=== PATIENT | male | born 1975 | race African-American/Black ===

== ENCOUNTER 2017-01-20 21:06 | Emergency (ER) | payer SELFPAY ==
[~2017-01-20] VITALS: Ht 190.5 cm; Wt 102.5 kg
[~2017-01-20 21:06] MED LIST: FLAGYL500 MG PO; LEVAQUIN500 MG PO; NAPROSYN-EC500 MG PO; NOHOMEMEDS; NORCO 5/3251 TABLET PO; PANTOPRAZOLE SO40 MG PO; TYLENOL EXTRA500 MG PO; ULTRAM50 MG PO; ZOFRAN ODT4 MG PO
[2017-01-20 21:43] LABS: HEMATOCRIT 48.6 % (38.0-50.0); MCH 30.8 PG (29.0-34.0); RBC DIS.WIDTH-CV 13.1 % (11.8-14.6); RBC DIS.WIDTH-SD 42.2 % (39-53); RED BLOOD COUNT 5.52 M/uL (4.00-5.50); WHITE BLOOD COUNT 15.5 K/uL (4.1-10.2)
[2017-01-20 21:58] LABS: CHLORIDE 105 mEq/L (99-109); POTASSIUM 4.6 mEq/L (3.7-5.4); SODIUM 136 mEq/L (136-147)
[2017-01-20 22:00] LABS: GLUCOSE 131 mg/dL (70-99)
[2017-01-20 22:01] LABS: ANION GAP 14 MEQ/L (2-14)
[2017-01-20 22:02] LABS: TOTAL BILIRUBIN 0.9 mg/dL (0.0-1.0)
[2017-01-20 22:03] LABS: ALKALINE PHOSPHATASE 81 IU/L (3-129)
[2017-01-20 22:04] LABS: GFR ESTIMATE (CALCULATED) > 59 mL/min/
[2017-01-20 22:05] LABS: UREA NITROGEN (BUN) 16 mg/dL (9-23)
[2017-01-20 22:07] LABS: LIPASE 8 U/L (1.0-51.0)
[2017-01-20 22:37] LABS: MEAN PLAT.VOLUME 12.1 uM^3 (9.0-12.4); PLAT.SUFFICIENCY ADEQUATE; PLATELET COUNT 187 K/uL (156-360)
[2017-01-20] MEDS ORDERED: BENTYL20 MG PO (23:42)
[2017-01-20] MEDS ORDERED: ZOFRAN ODT4 MG PO (23:42)
[2017-01-21 00:27] VITALS: BP 137/75
[2017-01-21] MEDS ORDERED: NORCO 5/3251 TABLET PO (15:22)
[2017-01-21] MEDS ORDERED: FLAGYL500 MG PO (15:22)
[2017-01-21] MEDS ORDERED: PHENERGAN25 MG PR (15:22)
[2017-01-21] MEDS ORDERED: CIPRO500 MG PO (15:22)
== END 2017-01-21 00:44 | disposition home or self-care (01) ==
LOC: RME 21:06 → EME 21:06 → RME 01-21 00:44
PROVIDERS: Physician Assistant
DX: R11.2 Nausea with vomiting, unspecified (principal); R10.30 Lower abdominal pain, unspecified; F17.200 Nicotine dependence, unspecified, uncomplicated
CPT/HCPCS: 74176; 80053; 81003; 83690; 85027; 99281; 99285; J1885; J2270; J2405; J2765; J7030

== ENCOUNTER 2017-01-21 11:18 | Emergency (ER) | payer SELFPAY ==
[~2017-01-21] VITALS: Ht 190.5 cm; Wt 102.2 kg
[~2017-01-21 11:18] MED LIST changes: +BENTYL20 MG PO
[2017-01-21 12:13] LABS: HEMATOCRIT 44.9 % (38.0-50.0); MCH 30.5 PG (29.0-34.0); MCV 87.4 FL (86-99); RBC DIS.WIDTH-CV 12.9 % (11.8-14.6); RBC DIS.WIDTH-SD 41.3 % (39-53); RED BLOOD COUNT 5.14 M/uL (4.00-5.50); WHITE BLOOD COUNT 15.3 K/uL (4.1-10.2)
[2017-01-21 12:25] LABS: CHLORIDE 105 mEq/L (99-109); SODIUM 139 mEq/L (136-147)
[2017-01-21 12:27] LABS: GLUCOSE 116 mg/dL (70-99)
[2017-01-21 12:28] LABS: ANION GAP 12 MEQ/L (2-14)
[2017-01-21 12:30] LABS: ALKALINE PHOSPHATASE 72 IU/L (3-129)
[2017-01-21 12:31] LABS: GFR ESTIMATE (CALCULATED) > 59 mL/min/
[2017-01-21 12:32] LABS: UREA NITROGEN (BUN) 14 mg/dL (9-23)
[2017-01-21 12:34] LABS: LIPASE 14 U/L (1.0-51.0)
[2017-01-21 12:37] LABS: POTASSIUM 3.2 mEq/L (3.7-5.4); TOTAL BILIRUBIN 1.5 mg/dL (0.0-1.0)
[2017-01-21 14:21] LABS: MEAN PLAT.VOLUME 11.7 uM^3 (9.0-12.4); PLATELET CLUMPS PRESENT - PLATELET COUNT APPEARS ADQ.; PLATELET COUNT 172 K/uL (156-360)
[2017-01-21] MEDS ORDERED: NORCO 5/3251 TABLET PO (15:22)
[2017-01-21] MEDS ORDERED: CIPRO500 MG PO (15:22)
[2017-01-21] MEDS ORDERED: PHENERGAN25 MG PR (15:22)
[2017-01-21] MEDS ORDERED: FLAGYL500 MG PO (15:22)
[2017-01-21 15:53] VITALS: BP 118/78
== END 2017-01-21 15:57 | disposition home or self-care (01) ==
LOC: EME 11:18
DX: R11.2 Nausea with vomiting, unspecified (principal); R10.31 Right lower quadrant pain; F17.200 Nicotine dependence, unspecified, uncomplicated
CPT/HCPCS: 80053; 81003; 83690; 85027; 99281; 99285; J2270; J2405

== ENCOUNTER 2018-01-23 21:57 | Emergency (ER) | payer SELFPAY ==
[~2018-01-23 21:57] MED LIST changes: +CIPRO500 MG PO; +PHENERGAN25 MG PR
[2018-01-23 22:27] LABS: AMYLASE 100 IU/L (1-118); CHLORIDE 105 mEq/L (99-109); POTASSIUM 3.4 mEq/L (3.7-5.4); SODIUM 140 mEq/L (136-147)
[2018-01-23 22:29] LABS: GLUCOSE 135 mg/dL (70-99)
[2018-01-23 22:32] LABS: SERUM ETHYL ALCOHOL < 10 mg/dL
[2018-01-23 22:33] LABS: CREATININE 1.3 mg/dL (0.6-1.3); GFR ESTIMATE (CALCULATED) > 59 mL/min/ (58.99-99999); UREA NITROGEN (BUN) 15 mg/dL (9-23)
[2018-01-23 22:36] LABS: LIPASE 28 U/L (1.0-51.0)
[2018-01-24 01:44] LABS: BASOPHIL (%) 0.4 % (0-1); EOSINOPHIL (%) 0.3 % (0-5); HEMATOCRIT 42.8 % (38.0-50.0); HEMOGLOBIN 15.4 G/DL (12.5-16.6); IMMATURE GRANULOCYTE (%) 0.5 % (0.0-0.7); LYMPHOCYTE (%) 61.2 % (15-42); LYMPHOCYTE COUNT 6.5 K/uL (1.0-2.8); MCH 31.7 PG (29.0-34.0); MCV 88.1 FL (86-99); MONOCYTE (%) 7.1 % (3-12); MONOCYTE COUNT 0.8 K/uL (0-0.8); NEUTROPHIL (%) 30.5 % (45-76); NEUTROPHIL COUNT 3.3 K/uL (1.8-6.4); PLATELET COUNT 142 K/uL (156-360); RBC DIS.WIDTH-CV 12.9 % (11.8-14.6); RBC DIS.WIDTH-SD 41.5 % (39-53); RED BLOOD COUNT 4.86 M/uL (4.00-5.50); WHITE BLOOD COUNT 10.7 K/uL (4.1-10.2)
== END 2018-01-24 00:24 | disposition home or self-care (01) ==
LOC: TRA 21:57
PROVIDERS: Emergency Medicine
PROC: 0HQ5XZZ Repair Chest Skin, External Approach (ICD-10-PCS; principal; 2018-01-23)
DX: S21.111A Laceration without foreign body of right front wall of thorax without penetration into thoracic cavity, initial encounter (principal); R51 Headache; X99.9XXA Assault by unspecified sharp object, initial encounter; Y93.01 Activity, walking, marching and hiking; Y92.410 Unspecified street and highway as the place of occurrence of the external cause; K02.9 Dental caries, unspecified; F17.200 Nicotine dependence, unspecified, uncomplicated
CPT/HCPCS: 70150; 71045; 80048; 81003; 82150; 83690; 85025; 86850; 86900; 86901; G0480